=== PATIENT | male | born 1955 | race Caucasian/White ===

== ENCOUNTER 2017-06-17 10:09 | Inpatient (IN) | payer OTHER ==
[2017-06-17 12:27] LABS: ABS Basophils 0 10^3/ul (0-0.2); ABS Eosinophils 0.1 10^3/ul (0-0.6); ABS Lymphocytes 0.9 10^3/ul (1.0-4.8); ABS Monocytes 0.4 10^3/ul (0-0.8); ABS Neutrophils 3.9 10^3/ul (1.5-7.7); ABS Nucleated RBC 0 10^3/ul; Eosinophil % 1.2 % (0-6); Hematocrit 43 % (42-52); Lymphocyte % 16.9 % (25-47); Mean Corpuscular HGB Conc 35 g/dl (31-36); Mean Corpuscular Hemoglobin 32 pg (27-31); Mean Corpuscular Volume 90 fL (80-94); Mean Platelet Volume 8 um3 (7.4-10.4); Nucleated Red Blood Cells % 0; Platelet Count 167 10^3/ul (150-450); Red Blood Count 4.76 10^6/ul (4.0-5.4); Red Cell Distribution Width 14 % (10.5-15); White Blood Count 5.3 10^3/ul (3.5-10.8)
[2017-06-17 12:41] LABS: EGFR Non-African American 77.2 (>60)
[2017-06-17 12:59] LABS: Urine Appearance Cloudy; Urine Blood Negative (Negative); Urine Color Yellow; Urine Ketones Negative (Negative); Urine Protein Negative (Negative); Urine Specific Gravity 1.012 (1.010-1.030); Urine Urobilinogen Negative (Negative)
[2017-06-17] MEDS ORDERED: Acetaminophen TAB* 325 MG PO PRN (14:27)
[2017-06-17] MEDS ORDERED: Al Hydrox/Mg Hydrox/Simet LIQ* 30 ML UDC PO PRN (14:27)
[2017-06-17] MEDS ORDERED: hydrOXYzine HCL TAB* 50 MG PO PRN (14:29)
[2017-06-17] MEDS ORDERED: traZODone TAB* 50 MG TAB PO PRN (14:30)
[2017-06-18] MEDS ORDERED: Sertraline* 50 MG TAB PO SCH (09:00)
--- NOTE | 2017-06-18 10:50 | ADMNOTE ---
History - Objective HPI: Psychiatric Attending History and Physical NAME: Tim Wright : 1955 AGE: 61 PROVIDER: Sandro Champion D.O. DATE OF ADMISSION: 06/17/2017 JUSTIFICATION FOR ADMISSION: Patient in need of 24 hour level of supervision due to suicidal ideation with plan to stab himself in the chest with a kitchen knife CHIEF COMPLAINT: " I'm waking up in the middle of the night with such severe anxiety that I cant take it any longer..... my thoughts of suicide have been getting stronger....These parts of my arms are crying out for pain..." HISTORY OF THE PRESENT ILLNESS: Patient is a 61 yo male with a history of MDD recurrent and panic disorder who was brought to the hospital by his 91 year old mother due to increasingly severe depressiive symptoms and anxiety over the past month including math professor awakening, daily panic symptoms, anergia, anhedonia, amotivation, feeling of being "void of purpose" and "hopeless", and daily dysphoric mood. Patient was having intermittent passive suicidal ideation but in past week he has been fantasizing about specific ways of ending his life. He has been ruminating about cutting wrists or stabbing himself in the chest with a kitchen knife. Patient reports he is waking up in the middle of the night with panic symptoms, racing thoughts, and has stayed awake agitated for the rest of the night. 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 Patient was admitted here on [facility] in 2014 with major depressive episode and SI after losing his position in [place] and moving back to [place]. he was discharged on Gabapentin 600 mg TID, Mirtazepine 15 mg QHS and Sertraline 100 mg qhs. He reports that he weaned himself off his medications about 6 months after discharge because he felt better and felt he didnt require the medication any longer. PAST PSYCHIATRIC HISTORY: Reports he first sought help for depression and anxiety in 2004 in [facility] and saw a psychiatrist who treated him with lexapro and Wellbutrin which he took for a short while. subsequently, he reports going to [facility] emergency room on two occasions in 2012 and 2013 for acute suicidal ideation. He was treated and released. Patient had severe Major Depressive Episode in 2014 after loss of his job and move to [place]. MMPI was consisttent with Major depressive episode. patient did well with above 3 medications but self discontinued his medications. NO PRIOR HISTORY OF SUICIDE ATTEMPT, NO HISTORY OF SELF INJURIOUS BEHAVIOR SUBSTANCE ABUSE HISTORY: denies alcohol or drug use denies tobacco use PAST MEDICAL HISTORY: hypercholesterolemia history of kidney stone in 1998 bilateral Hammertoe Repair of Right Femur Fracture in 2008 CURRENT MEDICATIONS: Zoloft 50 mg daily (restarted by his PCP 2 weeks ago) ALLERGIES: No Known Drug Allergies FAMILY PSYCHIATRIC HISTORY: Father: history of alcoholism and depression Paternal Grandfather: history of depression no history of completed suicide in family member FAMILY/PSYCHOSOCIAL HISTORY: Grew up in [place]. Father was a full professor of biology at [employer]. Mother stayed home. Mother 91 lives alone and is patient's primary support. 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 He was pushed out of position in 2014. He in 2009. He is estranged from his adult children and has not had contact with them since 2010 despite raising them with until they were in mid teens son 23 is [facility] program at [employer]. 21 year old daughter is in her second year of law school at [employer]. Patient has two sisters who live in [place] and a brother who is a direct care professional who lives in [facility]. REVIEW OF SYSTEMS: all noncontributory per hospitalist's H and P completed in ED on 06/17/2017 PHYSICAL EXAMINATION: UNREMARKABLE (NORMAL PHYSICAL EXAMINATION) per hospitalist 's H and P completed in ED on 06/17/2017 MENTAL STATUS EXAMINATION: Well developed and nourished 61 year old male who was resting in bed but agreed to get up and participate in the psychiatric evaluation. normal psychomotor behavior patient is well related. speech shows normal R,R,V. speech is fluent and spontaneous. patient's mood is self described as anxious. he does not identify feeling depressed. affect is sad, with diminished amplitude, but reactive without blunting. Thought process is goal directed and coherent. Thought content reveals theme of depression with prominent agitation component. patient descirbes feeling restless, having difficulty falling asleep, racing thoughts in bed and ruminating about the future. he describes feelings of hopelessness, despair, and feeling without purpose. he endorses anergia, panic attacks which wake him out of his sleep, rumination about suicide plan to stab self in chest or cut his arms. denies AH, VH, delusions, paranoia, obsessions, and compulsions. Patient is fully alert, articulate, and denies memory or concentration difficulties. He continues to attend a weekly improvisation group which meets and performs at a local bar in [place]. insight and judgment are good as patientknows he needs help and agreed to allow his mother to take him to hospital. He is a voluntary patient on [facility] He gave informed consent to start several medications to treat his anxiety and depressive symptoms. LABORATORY: Laboratory Last Values WBC 5.3 10^3/ul (3.5-10.8) 06/17/17 12:06 RBC 4.76 10^6/ul (4.0-5.4) 06/17/17 12:06 Hgb 15.0 g/dl (14.0-18.0) 06/17/17 12:06 Hct 43 % (42-52) 06/17/17 12:06 MCV 90 fL (80-94) 06/17/17 12:06 MCH 32 pg (27-31) H 06/17/17 12:06 MCHC 35 g/dl (31-36) 06/17/17 12:06 RDW 14 % (10.5-15) 06/17/17 12:06 Plt Count 167 10^3/ul (150-450) 06/17/17 12:06 MPV 8 um3 (7.4-10.4) 06/17/17 12:06 Neut % (Auto) 74.3 % (38-83) 06/17/17 12:06 Lymph % (Auto) 16.9 % (25-47) L 06/17/17 12:06 Power % (Auto) 7.4 % (1-9) 06/17/17 12:06 Eos % (Auto) 1.2 % (0-6) 06/17/17 12:06 Baso % (Auto) 0.2 % (0-2) 06/17/17 12:06 Absolute Neuts (auto) 3.9 10^3/ul (1.5-7.7) 06/17/17 12:06 Absolute Lymphs (auto) 0.9 10^3/ul (1.0-4.8) L 06/17/17 12:06 Absolute Monos (auto) 0.4 10^3/ul (0-0.8) 06/17/17 12:06 Absolute Eos (auto) 0.1 10^3/ul (0-0.6) 06/17/17 12:06 Absolute Basos (auto) 0 10^3/ul (0-0.2) 06/17/17 12:06 Absolute Nucleated RBC 0 10^3/ul 06/17/17 12:06 Nucleated RBC % 0 06/17/17 12:06 Sodium 135 mmol/L (133-145) 06/17/17 12:06 Potassium 4.1 mmol/L (3.5-5.0) 06/17/17 12:06 Chloride 105 mmol/L (101-111) 06/17/17 12:06 Carbon Dioxide 24 mmol/L (22-32) 06/17/17 12:06 Anion Gap 6 mmol/L (2-11) 06/17/17 12:06 BUN 12 mg/dL (6-24) 06/17/17 12:06 Creatinine 0.98 mg/dL (0.67-1.17) 06/17/17 12:06 Est GFR ( Amer) 99.3 (>60) 06/17/17 12:06 Est GFR (Non-Af Amer) 77.2 (>60) 06/17/17 12:06 BUN/Creatinine Ratio 12.2 (8-20) 06/17/17 12:06 Glucose 95 mg/dL (70-100) 06/17/17 12:06 Calcium 9.7 mg/dL (8.6-10.3) 06/17/17 12:06 Total Bilirubin 0.70 mg/dL (0.2-1.0) 06/17/17 12:06 AST 26 U/L (13-39) 06/17/17 12:06 ALT 27 U/L (7-52) 06/17/17 12:06 Alkaline Phosphatase 59 U/L (34-104) 06/17/17 12:06 Total Protein 6.5 g/dL (6.4-8.9) 06/17/17 12:06 Albumin 4.3 g/dL (3.2-5.2) 06/17/17 12:06 Globulin 2.2 g/dL (2-4) 06/17/17 12:06 Albumin/Globulin Ratio 2.0 (1-3) 06/17/17 12:06 TSH 0.56 mcIU/mL (0.34-5.60) 06/17/17 12:06 Urine Color Yellow 06/17/17 11:00 Urine Appearance Cloudy 06/17/17 11:00 Urine pH 8.0 (5-9) 06/17/17 11:00 Ur Specific [place] 1.012 (1.010-1.030) 06/17/17 11:00 Urine Protein Negative (Negative) 06/17/17 11:00 Urine Ketones Negative (Negative) 06/17/17 11:00 Urine Blood Negative (Negative) 06/17/17 11:00 Urine Nitrate Negative (Negative) 06/17/17 11:00 Urine Bilirubin Negative (Negative) 06/17/17 11:00 Urine Urobilinogen Negative (Negative) 06/17/17 11:00 Ur Leukocyte Esterase Negative (Negative) 06/17/17 11:00 Urine Glucose Negative (Negative) 06/17/17 11:00 Salicylates < 2.50 mg/dL (<30) 06/17/17 12:06 Urine Opiates Screen None detected (None Detect) 06/17/17 11:00 Acetaminophen < 15 mcg/mL 06/17/17 12:06 Ur Barbiturates Screen None detected (None Detect) 06/17/17 11:00 Ur Phencyclidine Scrn None detected (None Detect) 06/17/17 11:00 Ur Amphetamines Screen None detected (None Detect) 06/17/17 11:00 U Benzodiazepines Scrn None detected (None Detect) 06/17/17 11:00 Urine Cocaine Screen None detected (None Detect) 06/17/17 11:00 U Cannabinoids Screen None detected (None Detect) 06/17/17 11:00 Serum Alcohol < 10 mg/dL (<10) 06/17/17 12:06 IMPRESSION: 61 yo with history of MDD last admitted here in 2014 presents with recurrent depressive episode with prominent component of agitation and panic symptoms. Patient's depressive syndrome is severe. he has been ruminating about committing suicide by stabbing himself in the chest with a knife. Patient is gravely disabled and danger to self and requires 24 hour supervision and stabalization on an inpatient psychiatric unit. He is admitted as a voluntary patient. DIAGNOSES: Major Depressive Disorder severe without psychotic features Suicidal Ideation PLAN: Admit to [facility] on q 15 min observatin status as voluntary patient Individual, group and milieu therapy social work referral for psychotherapy, evaluation and discharge planning MMPI completed in past. no need to repeat. Will consult with Dr. Ballard in team start Klonopin 0.5 mg BID and q4h prn for anxiety Start Remeron 15 mg qhs for depression/anxiety/insomnia Start Cymbalta 30 mg QAM Trazodone 50 mg qhs for insomnia
--- NOTE | 2017-06-18 13:28 | ED ---
Brandyn Schofield Jennifer, scribed for Ankush Valencia MD on 06/17/17 at 1112 . Psychiatric Complaint - HPI Summary HPI Summary: The patient is a 61 year old male who presents with depression and anxiety that have been off-and-on for several years. The patient explains that he will wake up at 05:00 with anxiety attacks and cant fall back asleep because his mind runs. He went off Zoloft but went back on it two weeks ago. 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 He is scared to hurt himself but says the thought is appealing. The patient was accompanied today by his mother. 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, children "turned against him" by mother - Allergies/Home Medications Allergies/Adverse Reactions: Allergies Allergy/AdvReac Type Severity Reaction Status Date / Time No Known Allergies Allergy Verified 11/01/14 21:21 Home Medications: Home Medications hydrOXYzine HCL TAB* [Atarax TAB 50 MG *] 50 mg PO Q6HR PRN 06/17/17 [History Confirmed 06/17/17] traZODone TAB* [Desyrel TAB*] 50 mg PO BEDTIME PRN 06/17/17 [History Confirmed 06/17/17] PMH/Surg Hx/FS Hx/Imm Hx Cardiovascular History: Reports: Hx Hypercholesterolemia History: Reports: Hx Kidney Stones - 1998 Musculoskeletal History: Reports: Other Musculoskeletal History - KAMERON DYER Psychiatric History: Reports: Hx Anxiety, Hx Depression Denies: Hx Eating Disorder, Hx of Violent Episodes Against Others - Surgical History Surgery Procedure, Year, and Place: REPAIR R FEMUR FX 2008 Hx Anesthesia Reactions: No - Immunization History Date of Tetanus Vaccine: unsure Date of Influenza Vaccine: 2011 Infectious Disease History: No Infectious Disease History: Denies: Traveled Outside the [place] in Last 30 Days - Family History Known Family History: Negative: Diabetes - Social History Alcohol Use: None Substance Use Type: Reports: None Smoking Status (MU): Never Smoked Tobacco Have You Smoked in the Last Year: No Review of Systems Negative: Fever Positive: Anxious, Depressed All Other Systems Reviewed And Are Negative: Yes Physical Exam - Summary Physical Exam Summary: Appearance: The patient is well-nourished in no acute distress and in no acute pain. Skin: The skin is warm and dry and skin color reflects adequate perfusion. HEENT: ~The head is normocephalic and atraumatic. The pupils are equal and reactive. The conjunctivae are clear and without drainage. ~Nares are patent and without drainage. ~Mouth reveals moist mucous membranes and the throat is without erythema and exudate. ~The external ears are intact. The ear canals are patent and without drainage. The tympanic membranes are intact. Neck: the neck is supple with full range of motion and non-tender. There are no carotid bruits. ~There is no neck vein distension. Respiratory: Chest is non-tender. ~Lungs are clear to auscultation and breath sounds are symmetrical and equal. Cardiovascular: Heart is regular rate and rhythm. ~There is no murmur or rub auscultated. ~~There is no peripheral edema and pulses are symmetrical and equal. Abdomen: The abdomen is soft and non-tender. ~There are normal bowel sounds heard in all four quadrants and there is no organomegaly palpated. Musculoskeletal: There is no back tenderness noted. ~Extremities are non-tender with full range of motion. ~There is good capillary refill. ~There is no peripheral edema or calf tenderness elicited. Neurological: Patient is alert and oriented to person, place and time. ~The patient has symmetrical motor strength in all four extremities. ~Cranial nerves are grossly intact. Deep tendon reflexes are symmetrical and equal in all four extremities. Psychiatric: The patient has a labile affect. Triage Information Reviewed: Yes Vital Signs On Initial Exam: Initial Vitals Temp Pulse Resp BP Pulse Ox 97.4 F 51 18 125/83 97 06/17/17 10:19 06/17/17 10:19 06/17/17 10:19 06/17/17 10:19 06/17/17 10:19 Vital Signs Reviewed: Yes Diagnostics - Vital Signs Vital Signs Temp Pulse Resp BP Pulse Ox 06/17/17 10:19 97.4 F 51 18 125/83 97 - Laboratory Lab Results: Lab Results 06/17/17 06/17/17 06/17/17 Range/Units 11:00 11:00 12:06 WBC (3.5-10.8) 10^3/ul RBC (4.0-5.4) 10^6/ul Hgb (14.0-18.0) g/dl Hct (42-52) % MCV (80-94) fL MCH (27-31) pg MCHC (31-36) g/dl RDW (10.5-15) % Plt Count (150-450) 10^3/ul MPV (7.4-10.4) um3 Neut % (Auto) (38-83) % Lymph % (Auto) (25-47) % [place] % (Auto) (1-9) % Eos % (Auto) (0-6) % Baso % (Auto) (0-2) % Absolute Neuts (auto) (1.5-7.7) 10^3/ul Absolute Lymphs (auto) (1.0-4.8) 10^3/ul Absolute Monos (auto) (0-0.8) 10^3/ul Absolute Eos (auto) (0-0.6) 10^3/ul Absolute Basos (auto) (0-0.2) 10^3/ul Absolute Nucleated RBC 10^3/ul Nucleated RBC % Sodium 135 (133-145) mmol/L Potassium 4.1 (3.5-5.0) mmol/L Chloride 105 (101-111) mmol/L Carbon Dioxide 24 (22-32) mmol/L Anion Gap 6 (2-11) mmol/L BUN 12 (6-24) mg/dL Creatinine 0.98 (0.67-1.17) mg/dL Est GFR ( Amer) 99.3 (>60) Est GFR (Non-Af Amer) 77.2 (>60) BUN/Creatinine Ratio 12.2 (8-20) Glucose 95 (70-100) mg/dL Calcium 9.7 (8.6-10.3) mg/dL Total Bilirubin 0.70 (0.2-1.0) mg/dL AST 26 (13-39) U/L ALT 27 (7-52) U/L Alkaline Phosphatase 59 (34-104) U/L Total Protein 6.5 (6.4-8.9) g/dL Albumin 4.3 (3.2-5.2) g/dL Globulin 2.2 (2-4) g/dL Albumin/Globulin Ratio 2.0 (1-3) TSH 0.56 (0.34-5.60) mcIU/mL Urine Color Yellow Urine Appearance Cloudy Urine pH 8.0 (5-9) Ur Specific [place] 1.012 (1.010-1.030) Urine Protein Negative (Negative) Urine Ketones Negative (Negative) Urine Blood Negative (Negative) Urine Nitrate Negative (Negative) Urine Bilirubin Negative (Negative) Urine Urobilinogen Negative (Negative) Ur Leukocyte Esterase Negative (Negative) Urine Glucose Negative (Negative) Salicylates < 2.50 (<30) mg/dL Urine Opiates Screen None detected (None Detect) Acetaminophen < 15 mcg/mL Ur Barbiturates Screen None detected (None Detect) Ur Phencyclidine Scrn None detected (None Detect) Ur Amphetamines Screen None detected (None Detect) U Benzodiazepines Scrn None detected (None Detect) Urine Cocaine Screen None detected (None Detect) U Cannabinoids Screen None detected (None Detect) Serum Alcohol < 10 (<10) mg/dL 06/17/17 Range/Units 12:06 WBC 5.3 (3.5-10.8) 10^3/ul RBC 4.76 (4.0-5.4) 10^6/ul Hgb 15.0 (14.0-18.0) g/dl Hct 43 (42-52) % MCV 90 (80-94) fL MCH 32 H (27-31) pg MCHC 35 (31-36) g/dl RDW 14 (10.5-15) % Plt Count 167 (150-450) 10^3/ul MPV 8 (7.4-10.4) um3 Neut % (Auto) 74.3 (38-83) % Lymph % (Auto) 16.9 L (25-47) % Elliott % (Auto) 7.4 (1-9) % Eos % (Auto) 1.2 (0-6) % Baso % (Auto) 0.2 (0-2) % Absolute Neuts (auto) 3.9 (1.5-7.7) 10^3/ul Absolute Lymphs (auto) 0.9 L (1.0-4.8) 10^3/ul Absolute Monos (auto) 0.4 (0-0.8) 10^3/ul Absolute Eos (auto) 0.1 (0-0.6) 10^3/ul Absolute Basos (auto) 0 (0-0.2) 10^3/ul Absolute Nucleated RBC 0 10^3/ul Nucleated RBC % 0 Sodium (133-145) mmol/L Potassium (3.5-5.0) mmol/L Chloride (101-111) mmol/L Carbon Dioxide (22-32) mmol/L Anion Gap (2-11) mmol/L BUN (6-24) mg/dL Creatinine (0.67-1.17) mg/dL Est GFR ( Amer) (>60) Est GFR (Non-Af Amer) (>60) BUN/Creatinine Ratio (8-20) Glucose (70-100) mg/dL Calcium (8.6-10.3) mg/dL Total Bilirubin (0.2-1.0) mg/dL AST (13-39) U/L ALT (7-52) U/L Alkaline Phosphatase (34-104) U/L Total Protein (6.4-8.9) g/dL Albumin (3.2-5.2) g/dL Globulin (2-4) g/dL Albumin/Globulin Ratio (1-3) TSH (0.34-5.60) mcIU/mL Urine Color Urine Appearance Urine pH (5-9) Ur Specific [place] (1.010-1.030) Urine Protein (Negative) Urine Ketones (Negative) Urine Blood (Negative) Urine Nitrate (Negative) Urine Bilirubin (Negative) Urine Urobilinogen (Negative) Ur Leukocyte Esterase (Negative) Urine Glucose (Negative) Salicylates (<30) mg/dL Urine Opiates Screen (None Detect) Acetaminophen mcg/mL Ur Barbiturates Screen (None Detect) Ur Phencyclidine Scrn (None Detect) Ur Amphetamines Screen (None Detect) U Benzodiazepines Scrn (None Detect) Urine Cocaine Screen (None Detect) U Cannabinoids Screen (None Detect) Serum Alcohol (<10) mg/dL Result Diagrams: 06/17/17 12:06 06/17/17 12:06 Lab Statement: Any lab studies that have been ordered have been reviewed, and results considered in the medical decision making process. Course/Dx - Course Course Of Treatment: Mr. Wright presented with anxiety and depression that was longstanding but acutely exacerbated. He was medically cleared and had a [facility]. They offered him a voluntary admission which he accepted. - Differential Dx/Clinical Impression Provider Diagnosis: Anxiety, Depression Discharge - Discharge Plan Condition: Good Disposition: ADMITTED TO [facility] documentation as recorded by the Brandyn brothers Jennifer accurately reflects the service I personally performed and the decisions made by me, Ankush Valencia MD.
[2017-06-18] MEDS ORDERED: clonazePAM TAB(*) 0.5 MG PO ONE ×2 (15:00→21:00)
[2017-06-18] MEDS ORDERED: clonazePAM TAB(*) 0.5 MG PO PRN (15:49)
[2017-06-18] MEDS: Mirtazapine TAB* 15 MG PO SCH (20:48)
[2017-06-19] MEDS: clonazePAM TAB(*) 0.5 MG PO SCH ×2 (09:03→17:01)
[2017-06-19] MEDS: DULoxetine DR CAP* 30 MG CAP.DR PO SCH (09:03)
[2017-06-19] MEDS: Mirtazapine TAB* 15 MG PO SCH (20:52)
[2017-06-20] MEDS: DULoxetine DR CAP* 30 MG CAP.DR PO SCH (08:35)
[2017-06-20] MEDS: clonazePAM TAB(*) 0.5 MG PO SCH ×2 (08:36→17:12)
--- NOTE | 2017-06-20 18:11 | PN ---
Subjective - Subjective Subjective: Tim c/o feeling empty, spacey and with no energy since starting the meds. He endorses feeling like a failure, pessimist about his future and worthless. He cites stresses of unemployment, adult children not wanting to have a relationship with him. He denies suicidal ideation and he contracts for safety. Objective - Appearance Appearance: Healthy Appearing Dysmorphic Features: No Hygiene: Normal Grooming: Well Kept - Behavior Psychomotor Activities: Normal Exhibits Abnormal Movement: No - Attitude and Relatedness Attitude and Relatedness: Cooperative Eye Contact: Fair - Speech Quality: Unpressured Latencies: Normal Quantity: Copious - Mood Patient's Decription of Mood: empty - Affect Observed Affect: Constricted Affect Consistent with: Dysphoria - Thought Process Patient's Thought Process: Coherent, Goal Directed Thought Content: No Passive Wish, No Suicidal Planning, No Homicidal Ideation, No Paranoid Ideation - Sensorium Experiencing Hallucinations: No, Sensorium is Clear - Level of Consciousness Level of Consciousness: Alert Orientation: Yes Intact - Impulse Control Impulse Control: Intact - Insight and Judgement Insight and Judgement: Poor - Group Participation Particating in Group Activities: Yes - Medication Management Medication Management Adherence: Yes Assessment - Assessment Merits Inpatient Hospitalization: For Ongoing Evaluation, Consolidate Improvements, For Discharge Planning Inpatient DSM-IV Dx: MMD, recurrent, severe. Clinical Impression: Remains clinically depressed, but denying suicidality and tolerating medication trials. He needs continued admission for stabilization. Plan - Plan Treatment Plan: Name: TIM AMADOR Birthdate: 1955 [id number] Medications: Current Medications Acetaminophen (Tylenol Tab*) 650 mg PO Q4H PRN PRN Reason: for pain; or Temp >101 F Al Hydrox/Mg Hydrox/Simethicone (Maalox Plus*) 30 ml PO Q4H PRN PRN Reason: INDIGESTION Clonazepam (Klonopin Tab(*)) 0.5 mg PO BID@0900,1700 [facility] Last Admin: 06/20/17 17:12 Dose: 0.5 mg Clonazepam (Klonopin Tab(*)) 0.5 mg PO Q6H PRN PRN Reason: ANXIETY Last Admin: 06/19/17 20:53 Dose: 0.5 mg Duloxetine HCl (Cymbalta Cap*) 30 mg PO DAILY [facility] Last Admin: 06/20/17 08:35 Dose: 30 mg Mirtazapine (Remeron Tab*) 15 mg PO BEDTIME STEPHANIA Last Admin: 06/19/17 20:52 Dose: 15 mg Trazodone HCl (Desyrel Tab*) 50 mg PO BEDTIME PRN PRN Reason: INSOMNIA - Discharge Plan Discharge Plan: Outpatient Follow Up Outpatient Program: [facility]
[2017-06-20] MEDS: Mirtazapine TAB* 15 MG PO SCH (21:44)
[2017-06-21] MEDS: clonazePAM TAB(*) 0.5 MG PO SCH (08:38)
[2017-06-21] MEDS: DULoxetine DR CAP* 30 MG CAP.DR PO SCH (08:39)
--- NOTE | 2017-06-21 14:16 | PN ---
Subjective - Subjective Subjective: Psychiatric Attending Progress note: Reviewed patient's progress/functioining over weekend as well as psychiatrist adult probation officer progress note. Patient was seclusive over the weekend and declined attendance at the majority of groups choosing instead to nap or remain in bed awake. Patient interacted minimally with other patients. However, during visiting hours patient was social and fairly talkative with his family who came to visit daily (sister and mother). Today patient reports that he feels more sedated during the day then usual. reports he feels that he has to struggle to stay awake and doesnt usually feel this tired. He does report that level of anxiety and agitation has diminished considerably. no panic symptoms. He feels Remeron is helping him to sleep through the night without so many mid AM awakenings. continues to reports sad mood. when asked about suicidal ideation, he reports that the thoughts have decreased in frequency. He denies urge or intent or plan to harm self presently. contracts to tell staff if he should develop urge to act on impulses to harm himself. Objective - Appearance Appearance: Thin Framed Dysmorphic Features: No Hygiene: Normal Grooming: Fairly Well Kept - Behavior Psychomotor Activities: Abnormal-Decreased - Attitude and Relatedness Attitude and Relatedness: Superficially Cooperative Eye Contact: Fair - Speech Quality: Unpressured Latencies: Normal Quantity: Appropriate - Mood Patient's Decription of Mood: "Sad" - Affect Observed Affect: Depressed Affect Consistent with: Dysphoria - Thought Process Patient's Thought Process: Coherent Thought Content: Yes Passive Wish, No Suicidal Planning, No Homicidal Ideation, No Paranoid Ideation - Sensorium Type of Hallucinations: Visual: No, Auditory: No, Command: No - Level of Consciousness Level of Consciousness: Alert Orientation: Yes Intact, Yes Orientated to Time, Yes Orientated to Place, Yes Orientated to Person - Impulse Control Impulse Control: Intact - Insight and Judgement Insight and Judgement: Good - Group Participation Particating in Group Activities: Yes - Medication Management Medication Management Adherence: Yes Assessment - Assessment Merits Inpatient Hospitalization: For Immediate Safety, For Stabilization, For Ongoing Evaluation, Consolidate Improvements Inpatient DSM-IV Dx: MMD, recurrent, severe. Plan - Plan Treatment Plan: Plan: Change klonopin to 1 mg QHS from 0.5 mg BID due to sedation during day Increase Cymbalta to 60 mg QAM Remeron 15 mg QHS Trazodone 50 mg qhs prn insomnia encouraged patient to attend groups requires continued hospitalization for further treatment as he remains depressed and is having medicatino side effects.
[2017-06-21] MEDS: Mirtazapine TAB* 15 MG PO SCH (21:44)
[2017-06-21] MEDS: clonazePAM TAB(*) 1 MG PO SCH (21:44)
[2017-06-22] MEDS: DULoxetine DR CAP* 60 MG CAP.DR PO SCH (08:34)
--- NOTE | 2017-06-22 12:07 | PN ---
Subjective - Subjective Subjective: Psychiatric Attending Progress Note: attended 3 groups today. took naps and isolated in bed between groups reports he was very depressed and anxious in Am but as day progresses he feels better not lethargic like yesterday since klonopin changed to all at bed mother visited this evening I met with patient and mother during visiting hours. he is feeling less irritable and told me he was going to take more initiative in his own recovery. wants to be discharged by wednesday so he can attend his impro[facility] group [facility] wed[facility]" Objective - Appearance Appearance: Well Developed/Nourished Dysmorphic Features: No Hygiene: Normal Grooming: Fairly Well Kept - Behavior Psychomotor Activities: Abnormal-Decreased Exhibits Abnormal Movement: No - Attitude and Relatedness Attitude and Relatedness: Withdrawn Eye Contact: Good - Speech Quality: Unpressured Latencies: Normal Quantity: Appropriate - Mood Patient's Decription of Mood: "Anxious" - Affect Observed Affect: Depressed Affect Consistent with: Dysphoria - Thought Process Patient's Thought Process: Goal Directed Thought Content: No Passive Wish, No Suicidal Planning, No Homicidal Ideation, No Paranoid Ideation - Sensorium Experiencing Hallucinations: No, Sensorium is Clear Type of Hallucinations: Visual: No, Auditory: No, Command: No - Level of Consciousness Level of Consciousness: Alert Orientation: Yes Intact, Yes Orientated to Time, Yes Orientated to Place, Yes Orientated to Person - Impulse Control Impulse Control: Intact - Insight and Judgement Insight and Judgement: Good - Group Participation Particating in Group Activities: Yes - Medication Management Medication Management Adherence: Yes Assessment - Assessment Inpatient DSM-IV Dx: MDD, recurrent, severe with marked agitation. (agitated depression) Plan - Plan Treatment Plan: Plan: Klonopin 1 mg Cymbalta 60 mg QAM Remeron 15 mg QHS Trazodone 50 mg qhs prn insomnia encouraged patient to attend groups requires continued hospitalization for further treatment as he remains depressed,lethargic, amotivated, hopeless.
--- NOTE | 2017-06-22 13:14 | PN ---
[facility]: Group Therapy Note - Service Type Service Type: [id number] Group Psychotherapy - Cognitive Behavioral Group Therapy ( CBT):Patient was attentive and participatory in CBT programming this morning, and remained in good behavioral control. Patient expressed positive insights regarding relevant treatment interventions and goals.
[2017-06-22] MEDS: Mirtazapine TAB* 15 MG PO SCH (21:36)
[2017-06-22] MEDS: clonazePAM TAB(*) 1 MG PO SCH (21:36)
[2017-06-23] MEDS: DULoxetine DR CAP* 60 MG CAP.DR PO SCH (08:22)
--- NOTE | 2017-06-23 13:41 | PN ---
Subjective - Subjective Subjective: Psychiatric Attending Progress Note: Tim reports that his mood is slowly improving. Less anxious and no panic symptoms since moving fannie to bed. continues to report feeling tired during the day, almost lethargic feels he wants to nap and has been fighting the desire to take a nap in between groups. patient has been attending groups as requested and reports that he is learning coping strategies for managing his anxiety and depression. 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 Objective - Appearance Appearance: Well Developed/Nourished Dysmorphic Features: No Hygiene: Normal Grooming: Fairly Well Kept - Behavior Psychomotor Activities: Abnormal-Decreased Exhibits Abnormal Movement: No - Attitude and Relatedness Attitude and Relatedness: Cooperative Eye Contact: Good - Speech Quality: Unpressured Latencies: Normal Quantity: Appropriate - Mood Patient's Decription of Mood: "still feeling spacey and lost" - Affect Observed Affect: Depressed Affect Consistent with: Dysphoria - Thought Process Patient's Thought Process: Coherent Thought Content: No Passive Wish - denies suicidal ideation today, No Suicidal Planning, No Homicidal Ideation, No Paranoid Ideation - Sensorium Experiencing Hallucinations: No, Sensorium is Clear Type of Hallucinations: Visual: No, Auditory: No, Command: No - Level of Consciousness Level of Consciousness: Alert Orientation: Yes Intact, Yes Orientated to Time, Yes Orientated to Place, Yes Orientated to Person - Impulse Control Impulse Control: Intact - Insight and Judgement Insight and Judgement: Good - Group Participation Particating in Group Activities: Yes - Medication Management Medication Management Adherence: Yes Assessment - Assessment Merits Inpatient Hospitalization: For Immediate Safety, For Stabilization, Consolidate Improvements, For Discharge Planning Inpatient DSM-IV Dx: MDD, recurrent, severe with marked agitation. (agitated depression) Plan - Plan Treatment Plan: Plan: Klonopin 1 mg Cymbalta 60 mg QAM Remeron 15 mg QHS Trazodone 50 mg qhs prn insomnia encouraged patient to attend groups requires continued hospitalization for further medicatiion adjustment and stabalization of depression and anxiety discharge planning. potential discharge for 06/25/2017
[2017-06-23] MEDS: Mirtazapine TAB* 15 MG PO SCH (20:39)
[2017-06-23] MEDS: clonazePAM TAB(*) 1 MG PO SCH (20:39)
[2017-06-24] MEDS: DULoxetine DR CAP* 60 MG CAP.DR PO SCH (09:25)
--- NOTE | 2017-06-24 11:46 | PN ---
[facility]: Group Therapy Note - Service Type Service Type: [id number] Group Psychotherapy - Cognitive Behavioral Group Therapy ( CBT):Patient was attentive and participatory in CBT programming this morning, and remained in good behavioral control. Patient expressed positive insights regarding relevant treatment interventions and goals.
--- NOTE | 2017-06-24 15:03 | PN ---
Subjective - Subjective Subjective: Psychiatric Progress note feels mood has improved. no side effects from medication less anxious feels ready for discharge tomorrow Objective - Appearance Appearance: Well Developed/Nourished Dysmorphic Features: No Hygiene: Normal Grooming: Well Kept - Behavior Psychomotor Activities: Normal Exhibits Abnormal Movement: No - Attitude and Relatedness Attitude and Relatedness: Cooperative Eye Contact: Good - Speech Quality: Unpressured Latencies: Normal Quantity: Appropriate - Mood Patient's Decription of Mood: "Okay" - Affect Observed Affect: Fair Affect Consistent with: Euthymia - Thought Process Patient's Thought Process: Coherent, Goal Directed Thought Content: No Passive Wish, No Suicidal Planning, No Homicidal Ideation, No Paranoid Ideation - Sensorium Experiencing Hallucinations: No, Sensorium is Clear Type of Hallucinations: Visual: No, Auditory: No, Command: No - Level of Consciousness Level of Consciousness: Alert Orientation: Yes Intact, Yes Orientated to Time, Yes Orientated to Place, Yes Orientated to Person - Impulse Control Impulse Control: Intact - Insight and Judgement Insight and Judgement: Good - Group Participation Particating in Group Activities: Yes - Medication Management Medication Management Adherence: Yes Assessment - Assessment Merits Inpatient Hospitalization: For Immediate Safety, For Stabilization, For Ongoing Evaluation, For Discharge Planning Inpatient DSM-IV Dx: MDD, recurrent, severe with marked agitation. (agitated depression) Plan - Plan Treatment Plan: plan: continue current medication regimen discharge tomorrow Continued Medication Management: Consider Medication
[2017-06-24] MEDS: Mirtazapine TAB* 15 MG PO SCH (20:46)
[2017-06-24] MEDS: clonazePAM TAB(*) 1 MG PO SCH (20:46)
[2017-06-25 08:14] VITALS: BP 122/78
[2017-06-25] MEDS: DULoxetine DR CAP* 60 MG CAP.DR PO SCH (08:23)
--- NOTE | 2017-06-25 10:35 | DS ---
Treatment Course & Assessment Inpatient DSM-IV Dx: MDD, recurrent, severe with marked agitation. (agitated depression) Discharge Planning - Discharge Planning Medications: Current Medications Acetaminophen (Tylenol Tab*) 650 mg PO Q4H PRN PRN Reason: for pain; or Temp >101 F Al Hydrox/Mg Hydrox/Simethicone (Maalox Plus*) 30 ml PO Q4H PRN PRN Reason: INDIGESTION Clonazepam (Klonopin Tab(*)) 0.5 mg PO Q6H PRN PRN Reason: ANXIETY Last Admin: 06/19/17 20:53 Dose: 0.5 mg Clonazepam (Klonopin Tab(*)) 1 mg PO BEDTIME STEPHANIA Last Admin: 06/24/17 20:46 Dose: 1 mg Duloxetine HCl (Cymbalta Cap*) 60 mg PO DAILY [facility] Last Admin: 06/25/17 08:23 Dose: 60 mg Mirtazapine (Remeron Tab*) 15 mg PO BEDTIME STEPHANIA Last Admin: 06/24/17 20:46 Dose: 15 mg Trazodone HCl (Desyrel Tab*) 50 mg PO BEDTIME PRN PRN Reason: INSOMNIA Discharge Planning: Prescriptions provided for discharge [] Yes [] No Follow up care details as per social work arrangements. Patient response to discharge plan: [] eager for discharge [] agreeable with discharge plan [] ambivalent about discharge [] disagrees with discharge today
--- NOTE | 2017-06-25 11:48 | PN ---
[facility]: Group Therapy Note - Service Type Service Type: [id number] Group Psychotherapy - Cognitive Behavioral Group Therapy ( CBT):Patient was attentive and participatory in CBT programming this morning, and remained in good behavioral control. Patient expressed positive insights regarding relevant treatment interventions and goals.
== END 2017-06-25 13:45 | disposition home or self-care (01) | DRG 885 ==
LOC: ED 10:09 → BSU 16:37
PROVIDERS: ADMIT Psychiatry & Neurology Psychiatry; ATTEND Psychiatry & Neurology Psychiatry
PROC: GZHZZZZ Group Psychotherapy (ICD-10-PCS; principal; 2017-06-22)
DX: F33.2 Major depressive disorder, recurrent severe without psychotic features (principal); R45.851 Suicidal ideations; E78.00 Pure hypercholesterolemia, unspecified; M20.42 Other hammer toe(s) (acquired), left foot; M20.41 Other hammer toe(s) (acquired), right foot; F41.9 Anxiety disorder, unspecified; R45.84 Anhedonia; Z81.1 Family history of alcohol abuse and dependence; Z87.442 Personal history of urinary calculi; Z81.8 Family history of other mental and behavioral disorders
CPT/HCPCS: 36415; 80053; 80307; 80320; 80329; 81003; 84443; 85025; 90853; 99222; 99231; 99238; 99284; A9270-GY; G0480

== ENCOUNTER 2023-09-14 17:37 | Observation (INO) ==
[2023-09-14] MEDS: Lactated Ringers 1000 ml BAG 1,000 ML IV SCH (22:26)
[2023-09-14] MEDS: DULoxetine DR 60 mg CAP PO SCH (22:41)
[2023-09-15 01:14] LABS: Hematocrit 44.5 % (38-53); Hemoglobin 15.4 g/dL (13.2-16.3); Mean Corpuscular Hemoglobin 32.4 pg (27-33); Mean Corpuscular Hgb Conc 34.7 g/dL (31-36); Mean Corpuscular Volume 93.3 fL (80-97); Mean Platelet Volume 7.5 fL (7.5-11.2); Platelet Count 124 10^3/uL (150-450); Red Blood Count 4.77 10^6/uL (4.06-5.63); Red Cell Distribution Width 13.6 % (12-17); White Blood Count 6.1 10^3/uL (3.6-10.2)
[2023-09-15 01:48] LABS: Anion Gap 11 mmol/L (2-16); Blood Urea Nitrogen 30 mg/dL (6-24); CO2 Carbon Dioxide 22 mmol/L (22-32); Calcium 8.8 mg/dL (8.6-10.3); Chloride 103 mmol/L (101-111); Creatinine, Serum 0.96 mg/dL (0.67-1.17); Glucose 120 mg/dL (70-100); Sodium 136 mmol/L (135-145)
[2023-09-15] MEDS: Lactated Ringers 1000 ml BAG 1,000 ML IV SCH (04:05)
[2023-09-15 07:19] LABS: ABS Eosinophils 0.1 10^3/uL (0.0-0.5); ABS Lymphocytes 0.3 10^3/uL (1.0-4.8); ABS Monocytes 0.5 10^3/uL (0.0-1.1); ABS Neutrophils 4.8 10^3/uL (1.5-7.6); ABS Nucleated RBC 0.02 10^3/ul; Eosinophil % 1.9 %; Hematocrit 41.6 % (38-53); Hemoglobin 14.8 g/dL (13.2-16.3); Lymphocyte % 5.9 %; Mean Corpuscular Hemoglobin 31.8 pg (27-33); Mean Corpuscular Hgb Conc 35.5 g/dL (31-36); Mean Corpuscular Volume 89.5 fL (80-97); Mean Platelet Volume 8.1 fL (7.5-11.2); Nucleated Red Blood Cells % 0.3 %/100WBC (0.0-0.8); Platelet Count 140 10^3/uL (150-450); Red Blood Count 4.65 10^6/uL (4.06-5.63); Red Cell Distribution Width 13.5 % (12-17); White Blood Count 5.8 10^3/uL (3.6-10.2)
[2023-09-15 07:22] LABS: Calcium 8.4 mg/dL (8.6-10.3); Creatinine, Serum 0.96 mg/dL (0.67-1.17); Magnesium 1.8 mg/dL (1.9-2.7); Potassium 3.6 mmol/L (3.5-5.0); Potassium Redraw 3.6 mmol/L (3.5-5.0)
[2023-09-15] MEDS: Aspirin EC 81 mg TAB.EC (enteric coated) PO SCH (09:07)
[2023-09-15] MEDS: Enoxaparin 40 MG/0.4 ML SYR SUBCUT SCH (09:07)
[2023-09-15] MEDS: Potassium Chlor 20 meq TAB.ER PO ONE (10:57)
[2023-09-15] MEDS: Magnesium Sulfate IV 1GM/100ML 1 GM/100 ML BAG IV ONE (10:57)
[2023-09-15] MEDS: Calcium Carb (TUMS) 500 mg CHEW TAB PO ONE (12:10)
[2023-09-15 14:07] VITALS: BP 126/76
== END 2023-09-15 15:28 | disposition home or self-care (01) ==
LOC: ED 17:37 → EDHOLD 17:37 → SUATTDRO 21:14 → MEDTELE 23:37
PROVIDERS: ADMIT Internal Medicine; ATTEND Internal Medicine